=== PATIENT | female | born 1990 | race Caucasian/White ===

== ENCOUNTER 2017-08-03 22:58 | Emergency (ER) | payer MEDICAID ==
[~2017-08-03] VITALS: Ht 167.6 cm; Wt 66.2 kg
[2017-08-03 23:17] VITALS: BP 109/67
== END 2017-08-04 00:05 | disposition left against medical advice (07) ==
LOC: ER 22:58
DX: S61.011A Laceration without foreign body of right thumb without damage to nail, initial encounter (principal); Z53.21 Procedure and treatment not carried out due to patient leaving prior to being seen by health care provider; W26.8XXA Contact with other sharp object(s), not elsewhere classified, initial encounter; Y93.89 Activity, other specified; Y99.8 Other external cause status; Y92.9 Unspecified place or not applicable

== ENCOUNTER 2020-07-04 19:04 | Emergency (ER) | payer MEDICAID ==
[~2020-07-04] VITALS: Ht 167.6 cm; Wt 73.0 kg
[2020-07-04 19:08] VITALS: BP 133/81
== END 2020-07-04 23:49 | disposition home or self-care (01) ==
LOC: ER 19:04
DX: N61.1 Abscess of the breast and nipple (principal)